=== PATIENT | male | born 1960 ===

== ENCOUNTER 2025-05-31 20:08 | Emergency (ER) | payer SELFPAY ==
--- NOTE | 2025-05-31 20:10 | PC.NURSE ---
Please see papercharting for code documentation
--- NOTE | 2025-05-31 20:32 | ED.CPR ---
HPI - CPR General Chief Complaint: Cardiac Arrest/CPR Stated Complaint: cardiac arrest level 1 Time Seen by Provider: 05/31/25 20:09 Source: patient, EMS, RN notes reviewed and old records reviewed Mode of arrival: EMS History of Present Illness HPI narrative: 65-year-old male history of coronary artery disease, hypertension, dyslipidemia, insulin-dependent diabetes with a reported history of prior cardiac stent presents in cardiac arrest. EMS notes they received a call around 630 in the evening patient had witnessed cardiac arrest law enforcement was proximally 1-2 minutes away started CPR they developed ROSC and noted ST-elevation in lead V1 V2 were transporting to [facility] when patient Arcenio down lost pulses developed VFib arrest. Patient has a reported cardiac history. Patient received lidocaine, atropine and was paced after ROSC, lost pulses received 9 epinephrine EN route with EMS and was shocked for VFib 3 times EN route. Also received bicarb as well as calcium EN route. EMS notes has been having CPR intermittently for an hour plus. Has a proximally 10 minutes of ROSC during transport. They also note that patient has started have blood from his ET tube about half-way through transport. Review of Systems Review of Systems ROS Unobtainable: All systems reviewed & are unremarkable except as noted in HPI and below Exam Narrative Exam Narrative: GEN: Obese male, intubated, severe distress HEENT: Atraumatic, pupils are equal, nares are clear, ET tube in place. HEART: No pulses LUNGS: Breath sounds bilaterally with BVM. ABD: Obese. No bowel sounds MSCL: IO in the left lower extremity NEURO: GCS 3 MDM - Cardiac Arrest/CPR MDM Narrative Medical decision making narrative: Patient arrived, intubated in the field. ET tube appears to be in place. Had 1 mg epinephrine x9, lidocaine, atropine, bicarb, magnesium, calcium. Paced lost pulses EN route at had reported 3 cardiac shocks for VFib. Upon arrival patient continued to be in ventricular fibrillation received an additional 1 mg epinephrine x2 medias humeral IO that has placed here in the department, did have 300 mg amiodarone given as well although patient has IO appear to be displaced and new IO was placed. Patient pulseless here in the department after prolonged resuscitation was suspected cardiac source is EMS notes they had an EKG that showed ST elevation in V1 V2. Patient continues to be in VFib arrest did receive a cardiac shock here in the department. And time of was called at 2020. S[employer]ing [employer] Operator/Tender was contacted. EMS attempted to contact family but they ended up at [facility] after patient had to redirect [facility]. They have been contacted and are on their way to the department. Patient family in department. All questions answered. Critical Care Time Critical Care Time Critical Care Time: Yes Total Critical Care Time: 15 Attestation: The high probability of a clinically significant, sudden or life threatening deterioration of the cardiac system(s) required my full and direct attention, intervention and personal management. The aggregate critical care time was [--] minutes. This time is in addition to time spent performing reported procedures but includes the following: [x] Data Review and interpretation [x] Patient assessment and monitoring of vital signs [x] Documentation [x] Medication orders and management Discharge Plan Departure Patient Disposition: Clinical Impression: Cardiac arrest Date/Time: 05/31/25 20:21
--- NOTE | 2025-06-01 05:10 | RT ---
patient brought into ED by EMS already intubated in the field. CPR in progress. Manually bagged during code, suctioned blood orally and thru ETT during CPR. Several rounds done before physician called code due to no pulse after many attempts.
== END 2025-06-01 00:34 | disposition expired ==
LOC: ED 06-01 01:08
PROVIDERS: Emergency Provider Emergency Medicine
DX: I46.9 Cardiac arrest, cause unspecified (principal)
CPT/HCPCS: 92950; 99281; 99285